=== PATIENT | male | born 1985 | race Caucasian/White ===

== ENCOUNTER 2022-11-20 07:54 | Emergency (ER) | payer SELFPAY ==
[2022-11-20] MEDS ORDERED: Lidocaine 2% Viscous Solution 15 ML UD PO ONE (08:32)
[2022-11-20] MEDS ORDERED: Benzocaine 20% Topical Spray UD MUCMEM ONE (08:32)
== END 2022-11-20 09:14 | disposition home or self-care (01) ==
LOC: MW.ED 07:54
DX: K04.7 Periapical abscess without sinus (principal); I10 Essential (primary) hypertension; Z88.0 Allergy status to penicillin; Z79.899 Other long term (current) drug therapy
CPT/HCPCS: 99282; A9270; 99283